=== PATIENT | male | born 1980 | race Caucasian/White ===

== ENCOUNTER 2021-06-11 21:44 | Inpatient (IN) ==
[2021-06-11 22:27] LABS: Bilirubin,Urine Negative (Negative); Blood,Urine Negative (Negative); Clarity,Urine Clear (Clear); Color,Urine Yellow (Yellow); Glucose,Urine (UA) Normal (Normal); Ketones,Urine Negative (Negative); Leukocyte Esterase,Urine Trace (Negative); Mucus,Urine Few per lpf (None-Few); Nitrite,Urine Negative (Negative); Protein,Urine Trace mg/dL (Neg-Trace); RBC,Urine 0-3 per hpf (0-3); Specific Gravity,Urine 1.023 (1.010-1.025); Squamous Epithelial Cell,Urine Few per hpf (None-Few); WBC,Urine 15-30 per hpf (0-3)
[2021-06-11 22:29] LABS: Basophils # 0.1 K/mcL (0.0-0.2); Basophils % 1.1 %; Eosinophils # 0.3 K/mcL (0.0-0.6); Eosinophils % 7.3 %; Hematocrit 37.2 % (37.5-50.1); Hemoglobin 12.3 g/dL (12.9-16.9); Immature Granulocytes % 0.2 % (0-4); Lymphocytes # 1.6 K/mcL (0.6-4.6); Lymphocytes % 34.7 %; Mean Corpuscular HGB Conc 33.1 g/dL (31.6-35.5); Mean Corpuscular Hemoglobin 31.5 pg (28.0-33.3); Mean Corpuscular Volume 95.4 fL (83.0-100.0); Mean Platelet Volume 10.7 fL (9.4-12.4); Monocytes # 0.4 K/mcL (0.0-1.3); Monocytes % 8.8 %; Neutrophils # 2.2 K/mcL (1.6-8.9); Platelet Count 160 K/mcL (140-400); Red Cell Distribution Width 12.7 % (11.5-14.5); Segmented Neutrophils % 47.9 %; White Blood Count 4.5 K/mcL (4.3-11.1)
[2021-06-11 22:32] LABS: Amphetamine Screen,Urine Negative ng/mL (Cutoff=1000); Barbiturate Screen,Urine Negative ng/mL (Cutoff=200); Benzodiazepines Screen,Urine Negative ng/mL (Cutoff=200); Cannabinoid Screen,Urine Negative ng/mL (Cutoff = 50); Cocaine Screen,Urine Negative ng/mL (Cutoff= 300); Opiate Screen,Urine Negative ng/mL (Cutoff=300); Phencyclidine Screen,Urine Negative ng/mL (Cutoff=25)
[2021-06-11 22:42] LABS: Acetaminophen < 10 mcg/mL (10-20); BUN/Creatinine Ratio 10 (6-26); Blood Urea Nitrogen 8 mg/dL (6-20); Calcium 8.8 mg/dL (8.6-10.3); Carbon Dioxide 29 mEq/L (23-29); Chloride 105 mEq/L (98-107); Ethanol < 10 mg/dL (Less than 10); Glucose 97 mg/dL (70-105); Osmolality,Calculated 282 (280-300); Potassium 3.3 mEq/L (3.5-5.1); Salicylate < 2.5 mg/dL (15.0-30.0); Sodium 137 mEq/L (136-145); eGFR For African Americans > 60 (> 60); eGFR For Non-African Americans > 60 (> 60)
[2021-06-11 23:37] LABS: Influenza A PCR Negative (Negative); Influenza B PCR Negative (Negative); Resp. Syncytial Virus PCR Negative (Negative)
[2021-06-11 23:39] LABS: SARS-CoV-2 by PCR (In House) Negative (Negative)
[2021-06-12] MEDS ORDERED: *HR* LORazepam 1 MG TABLET PO PRN (04:15)
[2021-06-12] MEDS ORDERED: *HR* LORazepam 2 MG/ML VIAL IM PRN (04:15)
[2021-06-12] MEDS ORDERED: Haloperidol Lactate 5 MG/ML VIAL IM PRN (04:15)
[2021-06-12] MEDS ORDERED: haloperidoL 5 MG TABLET PO PRN (04:15)
[2021-06-12] MEDS ORDERED: Mag Hydrox/Al Hydrox/Simeth 30 ML UDC PO PRN (08:06)
[2021-06-12] MEDS ORDERED: MOM Conc 10 ML UD.LIQ PO PRN (08:06)
[2021-06-12] MEDS: Ibuprofen 400 MG TABLET PO PRN ×2 (11:51→17:44)
[2021-06-12] MEDS: hydrOXYzine pamoate 25 MG CAPSULE PO PRN ×2 (11:55→17:45)
[2021-06-12] MEDS ORDERED: BuPROPion XL (24 HR) 150 MG TABLET PO SCH (12:00)
[2021-06-12] MEDS: Nicotine 21 MG PATCH.TD24 TD SCH (12:43)
[2021-06-12] MEDS: cloNIDine HCL 0.1 MG TABLET PO PRN (17:45)
[2021-06-12] MEDS ORDERED: traZODone 50 MG TABLET PO SCH (21:00)
[2021-06-13] MEDS: hydrOXYzine pamoate 25 MG CAPSULE PO PRN ×3 (00:31→15:51)
[2021-06-13] MEDS: traZODone 50 MG TABLET PO PRN (00:31)
[2021-06-13] MEDS: cloNIDine HCL 0.1 MG TABLET PO PRN ×3 (00:31→23:51)
[2021-06-13] MEDS: Nicotine 21 MG PATCH.TD24 TD SCH (08:41)
[2021-06-13] MEDS: BuPROPion XL (24 HR) 150 MG TABLET PO SCH (08:41)
[2021-06-13] MEDS: Ibuprofen 400 MG TABLET PO PRN ×3 (08:41→23:52)
[2021-06-13] MEDS ORDERED: Nicotine 21 MG PATCH.TD24 TD SCH (09:00)
[2021-06-13] MEDS: traZODone 50 MG TABLET PO SCH (20:20)
[2021-06-14] MEDS: hydrOXYzine pamoate 25 MG CAPSULE PO PRN ×2 (06:50→22:47)
[2021-06-14] MEDS: Ibuprofen 400 MG TABLET PO PRN (06:50)
[2021-06-14] MEDS: BuPROPion XL (24 HR) 150 MG TABLET PO SCH (09:57)
[2021-06-14] MEDS: Nicotine 21 MG PATCH.TD24 TD SCH (09:57)
[2021-06-14] MEDS: Doxycycline 100 MG CAPSULE PO SCH ×2 (10:36→21:08)
[2021-06-14] MEDS: *HR* Buprenorphine HCl 8 MG TAB.SUBL SL SCH (11:36)
[2021-06-14] MEDS: Gabapentin 300 MG CAPSULE PO SCH ×2 (16:07→21:08)
[2021-06-14] MEDS: traZODone 50 MG TABLET PO SCH (21:07)
[2021-06-14] MEDS: traZODone 50 MG TABLET PO PRN (22:47)
[2021-06-15] MEDS: BuPROPion XL (24 HR) 150 MG TABLET PO SCH (07:51)
[2021-06-15] MEDS: Doxycycline 100 MG CAPSULE PO SCH ×2 (07:51→20:27)
[2021-06-15] MEDS: Gabapentin 300 MG CAPSULE PO SCH ×2 (07:51→20:27)
[2021-06-15] MEDS: *HR* Buprenorphine HCl 8 MG TAB.SUBL SL SCH (07:52)
[2021-06-15] MEDS: Nicotine 21 MG PATCH.TD24 TD SCH (09:48)
[2021-06-15] MEDS: traZODone 50 MG TABLET PO SCH (20:27)
[2021-06-15] MEDS ORDERED: QUEtiapine Fumarate 25 MG TABLET PO SCH (21:00)
[2021-06-16] MEDS: traZODone 50 MG TABLET PO PRN (00:56)
[2021-06-16] MEDS: hydrOXYzine pamoate 25 MG CAPSULE PO PRN ×2 (00:56→20:30)
[2021-06-16] MEDS ORDERED: *HR* Buprenorphine HCl 2 MG SUBLINGUAL TABLET SL SCH (09:00)
[2021-06-16] MEDS: BuPROPion XL (24 HR) 150 MG TABLET PO SCH (09:02)
[2021-06-16] MEDS: Doxycycline 100 MG CAPSULE PO SCH ×2 (09:06→20:30)
[2021-06-16] MEDS: Nicotine 21 MG PATCH.TD24 TD SCH (09:06)
[2021-06-16] MEDS: Gabapentin 300 MG CAPSULE PO SCH ×2 (09:06→20:30)
[2021-06-16] MEDS: Ibuprofen 400 MG TABLET PO PRN (18:35)
[2021-06-16] MEDS: traZODone 50 MG TABLET PO SCH (20:30)
[2021-06-17] MEDS: BuPROPion XL (24 HR) 150 MG TABLET PO SCH (08:09)
[2021-06-17] MEDS: Doxycycline 100 MG CAPSULE PO SCH ×2 (08:09→20:04)
[2021-06-17] MEDS: Gabapentin 300 MG CAPSULE PO SCH (08:09)
[2021-06-17] MEDS: Nicotine 21 MG PATCH.TD24 TD SCH (08:10)
[2021-06-17] MEDS: *HR* Buprenorphine HCl 2 MG SUBLINGUAL TABLET SL SCH (08:10)
[2021-06-17] MEDS: traZODone 50 MG TABLET PO SCH (20:03)
[2021-06-17] MEDS: Gabapentin 100 MG CAPSULE PO SCH (20:04)
[2021-06-17] MEDS: traZODone 50 MG TABLET PO PRN (21:09)
[2021-06-17] MEDS: cloNIDine HCL 0.1 MG TABLET PO PRN (21:09)
[2021-06-17] MEDS: hydrOXYzine pamoate 25 MG CAPSULE PO PRN (21:09)
[2021-06-17] MEDS: Ibuprofen 400 MG TABLET PO PRN (21:11)
[2021-06-18] MEDS: Nicotine 21 MG PATCH.TD24 TD SCH (08:53)
[2021-06-18] MEDS: Ibuprofen 400 MG TABLET PO PRN ×2 (08:54→19:57)
[2021-06-18] MEDS: Gabapentin 100 MG CAPSULE PO SCH ×2 (08:54→19:56)
[2021-06-18] MEDS: BuPROPion XL (24 HR) 150 MG TABLET PO SCH (08:54)
[2021-06-18] MEDS: Doxycycline 100 MG CAPSULE PO SCH ×2 (08:55→19:56)
[2021-06-18] MEDS: cloNIDine HCL 0.1 MG TABLET PO PRN ×2 (08:55→19:56)
[2021-06-18] MEDS: hydrOXYzine pamoate 25 MG CAPSULE PO PRN ×2 (08:55→19:57)
[2021-06-18] MEDS: *HR* Buprenorphine HCl 2 MG SUBLINGUAL TABLET SL SCH ×2 (09:24→09:37)
[2021-06-18] MEDS: traZODone 50 MG TABLET PO SCH (19:57)
[2021-06-18] MEDS: traZODone 50 MG TABLET PO PRN (22:42)
[2021-06-19] MEDS: Nicotine 21 MG PATCH.TD24 TD SCH (08:52)
[2021-06-19] MEDS: Gabapentin 100 MG CAPSULE PO SCH ×2 (08:54→20:46)
[2021-06-19] MEDS: Ibuprofen 400 MG TABLET PO PRN ×3 (08:54→22:55)
[2021-06-19] MEDS: cloNIDine HCL 0.1 MG TABLET PO PRN ×3 (08:55→22:55)
[2021-06-19] MEDS: hydrOXYzine pamoate 25 MG CAPSULE PO PRN ×3 (08:55→22:55)
[2021-06-19] MEDS: Doxycycline 100 MG CAPSULE PO SCH ×2 (08:55→20:46)
[2021-06-19] MEDS: *HR* Buprenorphine HCl 2 MG SUBLINGUAL TABLET SL SCH (08:56)
[2021-06-19] MEDS: traZODone 50 MG TABLET PO SCH (20:46)
[2021-06-20] MEDS: Nicotine 21 MG PATCH.TD24 TD SCH (08:37)
[2021-06-20] MEDS: Gabapentin 100 MG CAPSULE PO SCH ×2 (08:37→21:00)
[2021-06-20] MEDS: Doxycycline 100 MG CAPSULE PO SCH ×2 (08:37→21:00)
[2021-06-20] MEDS: cloNIDine HCL 0.1 MG TABLET PO PRN ×2 (11:14→17:34)
[2021-06-20] MEDS: Ibuprofen 400 MG TABLET PO PRN ×2 (11:14→17:34)
[2021-06-20] MEDS: hydrOXYzine pamoate 25 MG CAPSULE PO PRN ×2 (11:14→17:34)
[2021-06-20] MEDS ORDERED: Cetaphil Lotion 473 ML BOTTLE TP SCH (12:00)
[2021-06-20] MEDS: traZODone 50 MG TABLET PO SCH (21:00)
[2021-06-21] MEDS: cloNIDine HCL 0.1 MG TABLET PO PRN ×2 (06:27→17:00)
[2021-06-21] MEDS: Ibuprofen 400 MG TABLET PO PRN ×2 (06:29→17:00)
[2021-06-21] MEDS: hydrOXYzine pamoate 25 MG CAPSULE PO PRN ×3 (06:29→22:54)
[2021-06-21] MEDS: Doxycycline 100 MG CAPSULE PO SCH ×2 (10:21→21:07)
[2021-06-21] MEDS: Nicotine 21 MG PATCH.TD24 TD SCH (10:21)
[2021-06-21] MEDS: Gabapentin 100 MG CAPSULE PO SCH ×2 (10:21→21:06)
[2021-06-21] MEDS: QUEtiapine Fumarate 100 MG TABLET PO SCH ×2 (10:27→21:07)
[2021-06-21 12:05] LABS: Basophils # 0.1 K/mcL (0.0-0.2); Basophils % 1.2 %; Eosinophils # 0.4 K/mcL (0.0-0.6); Eosinophils % 6.9 %; Hematocrit 43.2 % (37.5-50.1); Hemoglobin 14.8 g/dL (12.9-16.9); Immature Granulocytes % 0.2 % (0-4); Lymphocytes % 33.9 %; Mean Corpuscular HGB Conc 34.3 g/dL (31.6-35.5); Mean Corpuscular Hemoglobin 31.4 pg (28.0-33.3); Mean Corpuscular Volume 91.7 fL (83.0-100.0); Mean Platelet Volume 10.5 fL (9.4-12.4); Monocytes # 0.4 K/mcL (0.0-1.3); Monocytes % 5.9 %; Neutrophils # 3.1 K/mcL (1.6-8.9); Platelet Count 170 K/mcL (140-400); Red Blood Count 4.71 M/mcL (4.19-5.50); Red Cell Distribution Width 12.3 % (11.5-14.5); Segmented Neutrophils % 51.9 %; White Blood Count 5.9 K/mcL (4.3-11.1)
[2021-06-21 12:24] LABS: Alanine Aminotransferase 72 Units/L (7-52); Albumin 3.8 g/dL (3.5-5.7); Albumin/Globulin Ratio 1.1 (1.1-2.2); Alkaline Phosphatase 47 Units/L (34-104); Aspartate Amino Transferase 33 Units/L (13-39); BUN/Creatinine Ratio 23 (6-26); Bilirubin,Total 0.6 mg/dL (0.3-1.0); Blood Urea Nitrogen 20 mg/dL (6-20); Calcium 9.4 mg/dL (8.6-10.3); Carbon Dioxide 29 mEq/L (23-29); Chloride 107 mEq/L (98-107); Globulin 3.4 g/dL (2.4-3.5); Glucose 135 mg/dL (70-105); Osmolality,Calculated 299 (280-300); Potassium 4.1 mEq/L (3.5-5.1); Sodium 142 mEq/L (136-145); Total Protein 7.2 g/dL (6.4-8.9); eGFR For African Americans > 60 (> 60); eGFR For Non-African Americans > 60 (> 60)
[2021-06-21] MEDS: traZODone 50 MG TABLET PO SCH (21:06)
[2021-06-21] MEDS: traZODone 50 MG TABLET PO PRN (22:54)
[2021-06-22] MEDS: Ibuprofen 400 MG TABLET PO PRN ×2 (00:38→09:51)
[2021-06-22] MEDS: Nicotine 21 MG PATCH.TD24 TD SCH (09:43)
[2021-06-22] MEDS: Gabapentin 100 MG CAPSULE PO SCH ×2 (09:44→20:34)
[2021-06-22 09:51] VITALS: O2SAT 97
[2021-06-22] MEDS: hydrOXYzine pamoate 25 MG CAPSULE PO PRN ×2 (09:51→20:35)
[2021-06-22] MEDS: cloNIDine HCL 0.1 MG TABLET PO PRN ×2 (11:30→23:38)
[2021-06-22] MEDS: QUEtiapine Fumarate 100 MG TABLET PO SCH (12:19)
[2021-06-22] MEDS: traZODone 50 MG TABLET PO SCH (20:35)
[2021-06-22] MEDS ORDERED: QUEtiapine Fumarate 100 MG TABLET PO SCH (21:00)
[2021-06-22] MEDS ORDERED: QUEtiapine Fumarate 25 MG TABLET PO SCH (21:00)
[2021-06-22 21:58] LABS: Influenza A PCR Negative (Negative); Influenza B PCR Negative (Negative); Resp. Syncytial Virus PCR Negative (Negative)
[2021-06-22 21:59] LABS: SARS-CoV-2 by PCR (In House) Negative (Negative)
[2021-06-22] MEDS: traZODone 50 MG TABLET PO PRN (23:38)
[2021-06-23] MEDS ORDERED: cloNIDine HCL 0.1 MG TABLET PO PRN (08:39)
[2021-06-23] MEDS: Gabapentin 100 MG CAPSULE PO SCH (09:05)
[2021-06-23] MEDS: Nicotine 21 MG PATCH.TD24 TD SCH (09:05)
[2021-06-23] MEDS: hydrOXYzine pamoate 25 MG CAPSULE PO PRN (09:07)
[2021-06-23 10:20] VITALS: BP 113/70; PULSE 77; TEMP 98
[2021-06-23] MEDS ORDERED: QUEtiapine Fumarate 100 MG TABLET PO PRN ×2 (12:33→13:58)
[2021-06-23] MEDS ORDERED: QUEtiapine Fumarate 25 MG TABLET PO PRN (12:33)
== END 2021-06-23 15:43 | disposition home or self-care (01) | DRG 751 ==
LOC: EMEROOARM 21:44 → 1ANU 06-12 04:01
PROVIDERS: ADMIT Psychiatry & Neurology Psychiatry; ATTEND Psychiatry & Neurology Psychiatry